=== PATIENT | male | born 1965 | race Caucasian/White ===

== ENCOUNTER → 2020-09-29 | Outpatient (REF) ==
[~2020-09-29] MED LIST: BYSTOLIC5 MG PO; MOTRIN 200200 MG/TAB; NO HOME MEDICATIONS; PRILOSEC 20MG20 MG PO; SEROQUEL50 MG PO; TRILIPIX45 MG PO; WELLBUTRIN XL300 M1 PO
== END ==
LOC: COL.CARD 10:17
DX: Z01.810 Encounter for preprocedural cardiovascular examination (principal)